=== PATIENT | female | born 1975 | race Caucasian/White ===

== ENCOUNTER 2017-11-18 14:08 | Emergency (ER) | payer BC, OTHER ==
[2017-11-18 14:31] VITALS: BP 152/84
--- NOTE | 2017-11-18 14:45 | ED Physician Documentation ---
General Adult - HISTORIAN Historian: patient - HPI Stated Complaint: "Wants Lab Work for Liver" Chief Complaint: General Adult Further Comments: yes (41 year old female patient presents requesting Hepatitis C testing. Patient reports positive Hep C testing in 2008, has not had any treatment. Reports katelynn Hep C from her throught a needle stick. Is not followed by primary care.) - ROS CONST: no problems EYES/ENT: none CVS/RESP: none GI/: none MS/SKIN/LYMPH: none - PAST HX Past History: asthma, other (Hepatitis C) Surgeries/Procedures: Allergies/Adverse Reactions: Allergies Allergy/AdvReac Type Severity Reaction Status Date / Time cephalexin monohydrate AdvReac Nausea/Vomi Verified 08/09/15 13:24 [From Keflex] ting ibuprofen [From Advil] AdvReac Wheezing Verified 08/09/15 13:24 Sulfa (Sulfonamide AdvReac Wheezing Verified 08/09/15 13:24 Antibiotics) - SOCIAL HX Smoking History: non-smoker - FAMILY HX Family History: No - VITAL SIGNS Vital Signs: Vital Signs Temp Pulse Resp BP Pulse Ox 97 F L 100 H 18 152/84 98 11/18/17 14:10 11/18/17 14:10 11/18/17 14:10 11/18/17 14:10 11/18/17 14:10 - REVIEWED ASSESSMENTS Nursing Assessment Reviewed: Yes Vitals Reviewed: Yes Progress - Progress Progress: Registration and nursing encouraged patient to go [facility]. Patient has appointment with clinic on 12/02/17. Explained she needed to do all testing with primary care as well as follow up. Education on Hep C, explained that she was still positive since she had not received treatment. Verbalized understanding. General Adult Physical Exam - PHYSICAL EXAM GENERAL APPEARANCE: [id number] N EENT: eye inspection normal, ARELY RESPIRATORY: no resp distress, chest non-tender, breath sounds normal CVS: reg rate & rhythm, heart sounds normal, equal pulses, no murmur, no gallop , PMI nml, no JVD, no friction rub, 24 ABDOMEN: soft, no organomegaly, normal bowel sounds, no abdominal bruit, no distension SKIN: normal color, warm/dry, NR, INT, PAL, DR NEURO: oriented X3, motor nml, sensation nml, mood/affect nml Discharge Clincal Impression: Hepatitis C Qualifiers: Viral hepatitis chronicity: unspecified Hepatic coma status: without hepatic coma Qualified Code(s): B19.20 - Unspecified viral hepatitis C without hepatic coma Referrals: David Samuels MD [Primary Care Provider] - 2 Days Additional Instructions: Keep your appointment with primary care for lab. Condition: Stable Disposition: 01 HOME, SELF-CARE Decision to Admit: NO Decision Time: 14:44
== END 2017-11-18 14:48 | disposition home or self-care (01) ==
LOC: ED 14:08
DX: B19.20 Unspecified viral hepatitis C without hepatic coma (principal)
CPT/HCPCS: 99282

== ENCOUNTER 2018-07-21 17:10 | Emergency (ER) | payer SELFPAY ==
--- NOTE | 2018-07-21 17:39 | ED Physician Documentation ---
Upper Respiratory Symptoms - HPI Stated Complaint: Sinus pain Chief Complaint: Upper Respiratory Symptoms Further Comments: yes (42 year old female patient presents with complaint of 3 day history of cough, yellow/green sinsus drainage and pressure. Reports subjective fever.) - ROS CONST/EYES: denies: weakness, eye redness, eye itching CVS/RESP: denies: chest pain, shortness of breath, palpitations LYMPH: denies: leg swelling, rash, swollen glands, ankle swelling, other GI/: none NEURO/PSYCH: denies: fainting, dizziness, confusion, anxiety, depression, other MS/SKIN: denies: joint pain, muscle aches, rash, other - PAST HX Lung Disease: other (depression) Surgeries/Procedures: Allergies/Adverse Reactions: Allergies Allergy/AdvReac Type Severity Reaction Status Date / Time cephalexin monohydrate AdvReac Nausea/Vomi Verified 07/21/18 17:29 [From Keflex] ting ibuprofen [From Advil] AdvReac Wheezing Verified 07/21/18 17:29 Sulfa (Sulfonamide AdvReac Wheezing Verified 07/21/18 17:29 Antibiotics) Home Medications: Ambulatory Orders Medication Instructions Recorded Levofloxacin [Levaquin] 500 mg PO DAILY #7 tablet 07/21/18 - SOCIAL HX Smoking History: cigarettes - FAMILY HX Family History: denies: none - VITAL SIGNS Vital Signs: Vital Signs Temp Pulse Resp BP Pulse Ox 97.6 F 87 16 152/88 97 07/21/18 17:15 07/21/18 17:15 07/21/18 17:15 07/21/18 17:15 07/21/18 17:15 - REVIEWED ASSESSMENTS Nursing Assessment Reviewed: Yes Vitals Reviewed: Yes Upper Respiratory Symptoms - EXAM General Appearance: mild distress EENT: eyes nml inspection, lids & conjunct. nml, PERRL, ear nml, pain over sinuses, frontal, maxillary, ethmoid, mucosal edema, purulent nasal drainage, pharynx nml, airway nml Respiratory: no resp. distress, breath sounds nml, no pain on inspiration, speaks full sentences, no pleuritic chest pain Abdomen: non-tender, no organomegaly, nml bowel sounds, no distention CVS: reg rate & rhythm, heart sounds normal, equal pulses, no murmur, no gallop, PMI nml, no JVD, no friction rub, 24 Skin: color nml, no rash, warm,dry Extremities: non-tender, normal range of motion, no evidence of injury, no edema, J, [employer] Neuro/Psych: oriented x3, neuro intact, mood/affect nml, CN's nml as tested Discharge Clincal Impression: Pansinusitis Qualifiers: Chronicity: acute Recurrence: non-recurrent Qualified Code(s): J01.40 - Acute pansinusitis, unspecified Prescriptions: Levofloxacin [Levaquin] 500 mg PO DAILY #7 tablet Referrals: David Samuels MD [Primary Care Provider] - 2 Days Additional Instructions: [employer] an over the counter decongestant such as pseudoped, dayquil and Nyquil at your pharmacy. Treat your symptoms with over the counter medication. You may want to try Vicks rub on your chest and/or feet Cough drops as needed for cough and sore throat. Increase your fluid intake juices, hot tea, non-caffeinated beverages Use a humidifier in the room where you sleep. You can also sit in a steam filled bathroom 1-2 times a day. Tylenol or Ibuprofen as needed for fever, pain and body aches. Start daily allergy medication such as Claritin, Deepthi or Zyrtec. Start a daily nasal spray such as Flonase or Nasonex You may benefit from the use of a netti pot follow package instructions. See your primary care doctor after you have completed your antibiotic if you symptoms have not resolved. Many times it takes multiple rounds of antibiotics to resolve a sinus infection. Condition: Stable Disposition: 01 HOME, SELF-CARE Decision to Admit: NO Decision Time: 17:38
[2018-07-21 17:42] VITALS: BP 152/88
== END 2018-07-21 17:45 | disposition home or self-care (01) ==
LOC: ED 17:10
DX: J01.40 Acute pansinusitis, unspecified (principal)
CPT/HCPCS: 99283

== ENCOUNTER 2018-11-24 12:57 | Emergency (ER) | payer SELFPAY ==
[2018-11-24 13:50] VITALS: BP 161/95
--- NOTE | 2018-11-24 13:50 | ED Physician Documentation ---
Female Urogenital Problems - HISTORIAN Historian: patient - HPI Chief Complaint: Female Urogenital Problems Additional Information: urinary frequency burning urgency burning and suprapubic and lt rt flank pain- prev uti 'SIMILAR' Onset: days ago (2) Severity: moderate Location of Pain: low back pain, flank pain - Associated Symptoms Urinary Symptoms: frequent urination, discomfort w/ urination, burning w/ urination, urgency w/ urination, pain w/ urination Discharge: denies: vaginal discharge - ROS CONST: none GI/: nausea CVS/RESP: none EYES/ENT: none NEURO/PSYCH: none MS/SKIN/LYMPH: none - PAST HX Past History: other (asthma PTSD prev UTI ) Other History: kidney infection Surgeries/Procedures: , tonsillectomy Allergies/Adverse Reactions: Allergies Allergy/AdvReac Type Severity Reaction Status Date / Time cephalexin monohydrate AdvReac Nausea/Vomi Verified 11/24/18 13:51 [From Keflex] ting ibuprofen [From Advil] AdvReac Wheezing Verified 11/24/18 13:51 Sulfa (Sulfonamide AdvReac Wheezing Verified 11/24/18 13:51 Antibiotics) Home Medications: Ambulatory Orders Medication Instructions Recorded Sertraline HCl [Zoloft] 2 tab PO DAILY 11/24/18 - SOCIAL HX Smoking History: non-smoker Alcohol Use: none Drug Use: none - VITAL SIGNS Vital Signs: Vital Signs Temp Pulse Resp BP Pulse Ox 152/88 07/21/18 17:45 - REVIEWED ASSESSMENTS Nursing Assessment Reviewed: Yes Vitals Reviewed: Yes ED Results Lab/Radiology - Orders Orders: ED Orders Category Date Time Status URINALYSIS Routine Lab 11/24/18 Ordered Female Urogenital Problems - EXAM General Appearance: mild distress EENT: eye inspection normal Neck: nml inspection Respiratory: no resp. distress, breath sounds nml CVS: reg rate & rhythm, heart sounds normal Abdomen: soft, non-tender (suprapubic and bilat flanks-pos RPT) Skin: color nml, no rash, warm,dry. No: cyanosis, diaphoresis, pallor Extremities: non-tender, normal range of motion Neuro: oriented X3, motor nml, sensation nml, mood/affect nml, cognition normal Discharge Clincal Impression: un diagnosed abd pain Referrals: Olayinka Harris MD [Primary Care Provider] - 2 Days Comments: suggested CT to pt. she declines on basis she will have kidney failure-"my with kidney failure". dipti is convinced it is her vaginal wash. she decides to leave AMA w/understanding she can come back-or- go to pcp or otheR ED
[2018-11-24 15:14] LABS: BASOPHILS % 0.5 (0.0-1.5); EOSINOPHILS % 3.4 % (0.0-6.8); MEAN CORPUSCULAR HEMOGLOBIN 27.6 pg (28.0-34.0); MONOCYTES % 5.5 % (0.0-11.0); NEUTROPHILS # 4.2 # k/uL (1.4-7.7)
[2018-11-24 15:42] LABS: eGFR (Non-African) > 60
[2018-11-24 17:39] LABS: APPEARANCE,URINE CLEAR (CLEAR); COLOR,URINE YELLOW (YELLOW); OCCULT BLOOD,URINE NEGATIVE (NEGATIVE); UROBILINOGEN URINE 0.2 Eu (0.2-1.0)
== END 2018-11-24 16:10 ==
LOC: ED 12:57
DX: R10.9 Unspecified abdominal pain (principal)
CPT/HCPCS: 36415; 80053; 81002; 85025; 99282; 99283; S1016

== ENCOUNTER 2019-05-07 20:33 | Emergency (ER) | payer SELFPAY ==
[2019-05-07 21:36] VITALS: BP 144/73
--- NOTE | 2019-05-07 21:38 | ED Physician Documentation ---
General Adult - HISTORIAN Historian: patient - HPI Stated Complaint: SORE THROAT Chief Complaint: Sore Throat Additional Information: [place] hs a 3 day history of sore throat. Cough mild productive of green phlegm. No fever or chills noted. Timing: still present - ROS CONST: no problems. denies: fever, chills CVS/RESP: none, cough. denies: chest pain, shortness of breath - PAST HX Past History: asthma Surgeries/Procedures: other (TandA) Immunizations: referred to PCP Allergies/Adverse Reactions: Allergies Allergy/AdvReac Type Severity Reaction Status Date / Time cephalexin monohydrate AdvReac Nausea/Vomi Verified 05/07/19 21:37 [From Keflex] ting ibuprofen [From Advil] AdvReac Wheezing Verified 05/07/19 21:37 Sulfa (Sulfonamide AdvReac Wheezing Verified 05/07/19 21:37 Antibiotics) Home Medications: Ambulatory Orders Medication Instructions Recorded Sertraline HCl [Zoloft] 2 tab PO DAILY 11/24/18 Amoxicillin [Trimox] 500 mg PO TID #30 capsule 05/07/19 - SOCIAL HX Smoking History: non-smoker Alcohol Use: none Drug Use: none - FAMILY HX Family History: No - VITAL SIGNS Vital Signs: Vital Signs Temp Pulse Resp BP Pulse Ox 98.3 F 76 18 144/73 97 05/07/19 20:33 05/07/19 20:33 05/07/19 20:33 05/07/19 20:33 05/07/19 20:33 - REVIEWED ASSESSMENTS Nursing Assessment Reviewed: Yes Vitals Reviewed: Yes ED Results Lab/Radiology - Orders Orders: ED Orders Category Date Time Status Rapid Strep [GRP A STREP SCREEN] Urgent Lab 05/07/19 Ordered Discharge Clincal Impression: Strep pharyngitis Referrals: Olayinka Harris MD [Primary Care Provider] - 2 Days Additional Instructions: Drink a lot of fluids, gargle with salt water. Use some throat lozenges as needed to help with pain. Take all of Amoxil until it it gone. Condition: Stable Disposition: 01 HOME, SELF-CARE Decision to Admit: NO Date of Decison to Admit: 05/07/19 Decision Time: 21:44
[2019-05-07] MEDS: AMOXICILLIN 500 MG CAPSULE PO ONE (21:50)
== END 2019-05-07 21:50 | disposition home or self-care (01) ==
LOC: ED 20:33
DX: J02.0 Streptococcal pharyngitis (principal)
CPT/HCPCS: 87880; 99281; 99283